=== PATIENT | male | born 1960 | race Caucasian/White ===

== ENCOUNTER 2018-11-09 21:22 | Inpatient (IN) | payer BC, OTHER ==
[~2018-11-09] VITALS: Ht 182.9 cm; Wt 87.2 kg
--- OUTSIDE RECORDS SUMMARY | 2018-11-09 21:26 | XMS REPORT | Clinical Summary ---
Author Author [facility] Organization [facility] Address Unknown Phone Unavailable Care Team Providers Care Director Of Community Life Name Role Phone Asked, No Pcp PCP Unavailable Allergies Comments Active Allergy Reactions Severity Noted Date Fatigue and depression Carvedilol 03/26/2016 Dye 03/25/2016 Iodine And Iodide Rash, High 03/26/2016 Containing Products Shortness Of Breath Medications End Date Status Medication Sig Dispensed Refills Start Date Active carvedilol (COREG) 25 MG Take 12.5 mg 0 tablet by mouth 2 (two) times a day with meals. Patient takes 6.25mg BID. Active losartan (COZAAR) 100 MG Take 25 mg by 0 tablet mouth daily. Active aspirin (ECOTRIN) 81 MG Take 81 mg by 0 enteric coated tablet mouth daily. Active omega-3 fatty Take by 0 acids-vitamin E (FISH mouth. OIL) 1,000 mg capsule Active fexofenadine (LYUDMILA) Take 180 mg 0 180 MG tablet by mouth. Active fluticasone (FLONASE) 50 1 spray into 0 mcg/actuation nasal spray each nostril. Active multivitamin (THERAGRAN) Take 1 tablet 0 tablet by mouth. Active levocetirizine (XYZAL) 5 Take 5 mg by 0 MG tablet mouth every evening. Active azelastine (ASTELIN) 137 1 spray into 0 mcg (0.1 %) nasal spray each nostril daily. Use in each nostril as directed Active calcium carbonate-vitamin Take 1 tablet 0 D3 500 mg-200 unit per by mouth 2 tablet (two) times a day with meals. Active cyanocobalamin, vitamin Place under 0 B-12, (VITAMIN B-12) the tongue. 1,000 mcg tablet, sublingual Active Problems Problem Noted Date Obesity 03/26/2016 Encounters Care Team Description Date Type Specialty Heri Avalos MD Morbid obesity due to excess calories (Primary Dx); Diabetes mellitus due to underlying condition with hyperosmolarity without coma, without long-term current use of insulin; Essential hypertension; Other hyperlipidemia; Obstructive sleep apnea; Systolic congestive heart failure, unspecified congestive heart failure chronicity 05/06/2018 Office Visit General Surgery Heri Avalos MD 04/21/2018 Orders Only General Surgery after 11/08/2017 Family History Medical History Relation Name Comments Cirrhosis Brother Hepatitis Brother Heart failure Father Colon cancer Mother Relation Name Status Comments Brother Father Mother Social History Date Tobacco Use Types Packs/Day Years Used Former Smoker Cigarettes 1 9 Smokeless Tobacco: Never Used Alcohol Use Drinks/Week oz/Week Comments Yes 1 Glasses of 0.6 occ. wine Sex Assigned at Date Recorded Not on file Industry Job Start Date Occupation Not on file Not on file Not on file Travel End Travel History Travel Start No recent travel history available. Last Filed Vital Signs Time Taken Vital Sign Reading 05/06/2018 11:18 AM CDT Blood Pressure 140/70 05/06/2018 11:18 AM CDT Pulse 61 05/06/2018 11:18 AM CDT Temperature 36.3 C (97.4 F) 05/06/2018 11:18 AM CDT Respiratory Rate 18 05/06/2018 11:18 AM CDT Oxygen Saturation 99% - Inhaled Oxygen - Concentration 05/06/2018 11:18 AM CDT Weight 85.5 kg (188 lb 8 oz) 05/06/2018 11:18 AM CDT Height 182.9 cm (6') 05/06/2018 11:18 AM CDT Body Mass Index 25.57 Plan of Treatment Health Maintenance Due Date Last Done Comments DIABETIC RETINAL EYE EXAM 1958 DIABETIC FOOT EXAM 1968 URINE MICROALBUMIN 1968 COLON CANCER SCREENING 2008 SHINGLES VACCINES (#1) 2008 INFLUENZA VACCINE Completed 05/05/2018, 05/16/2017, 05/05/2017, Additional history exists Procedures Comments Procedure Name Priority Date/Time Associated Diagnosis VITAMIN B1 LEVEL, WHOLE Routine 04/21/2018 BLOOD 8:27 AM CDT VITAMIN A LEVEL, PLASMA Routine 04/21/2018 OR SERUM 8:27 AM CDT ZINC LEVEL, SERUM Routine 04/21/2018 8:27 AM CDT COPPER LEVEL, SERUM Routine 04/21/2018 8:27 AM CDT PARATHYROID HORMONE Routine 04/21/2018 8:27 AM CDT FERRITIN LEVEL Routine 04/21/2018 8:27 AM CDT T4 Routine 04/21/2018 8:27 AM CDT VITAMIN D 25 HYDROXY Routine 04/21/2018 LEVEL 8:27 AM CDT THYROID STIMULATING Routine 04/21/2018 HORMONE 8:27 AM CDT HEMOGLOBIN A1C Routine 04/21/2018 8:27 AM CDT VITAMIN B12 AND FOLATE Routine 04/21/2018 8:27 AM CDT TOTAL IRON BINDING Routine 04/21/2018 CAPACITY 8:27 AM CDT LIPID PROFILE WITH Routine 04/21/2018 NON-HDL CHOLESTEROL 8:27 AM CDT COMPREHENSIVE METABOLIC Routine 04/21/2018 PANEL 8:27 AM CDT CBC WITH PLATELET AND Routine 04/21/2018 DIFFERENTIAL 8:27 AM CDT after 11/08/2017 Results * Lipid Panel (04/21/2018 8:27 AM CDT) Cholesterol 170 100 - 199 mg/dL [facility] Triglycerides 54 0 - 149 mg/dL [facility] HDL cholesterol 80 >39 mg/dL [facility] VLDL cholesterol leslie 11 5 - 40 mg/dL [facility] LDL cholesterol 79 0 - 99 mg/dL [facility] calculated Narrative Performed At Performed at:01 - [facility] [address] [place], [id number] [employer] Supervisor: Antonio Pretty MD, Phone:[phone] Performing Organization Address City/State/Zipcode Phone Number [facility] * Vitamin B12 and Folate (04/21/2018 8:27 AM CDT) Vitamin B12 1,225 232 - 1,245 pg/mL [facility] Folate 12.4 >3.0 ng/mL [facility] Comment: A serum folate concentration of less than 3.1 ng/mL is considered to represent clinical deficiency. Narrative Performed At Performed at:[address] [place], [place] [id number] [employer] Supervisor: Antonio Pretty MD, Phone:[phone] Performing Organization Address [facility] Phone Number [facility] * Total iron binding capacity (04/21/2018 8:27 AM CDT) Iron binding capacity 337 250 - 450 ug/dL [facility] Unsaturated iron binding 161 111 - 343 ug/dL [facility] capacity Iron level 176 (H) 38 - 169 ug/dL [facility] Iron saturation 52 15 - 55 % [facility] Narrative Performed At Performed at:[address] [place], [place] [id number] [employer] Supervisor: Antonio Pretty MD, Phone:[phone] Performing Organization Address [facility] Phone Number [facility] * Copper level, serum (04/21/2018 8:27 AM CDT) Copper 103Comment: 72 - 166 ug/dL [facility] Detection Limit=5 Narrative Performed At Performed at:[address] [place], [place] [id number] [employer] Supervisor: Ayden Valderrama MD, Phone:[phone] Performing Organization Address [facility] Phone Number [facility] * Vitamin B1 level, whole blood (04/21/2018 8:27 AM CDT) Vitamin B1, whole blood 92.1 66.5 - 200.0 nmol/L [facility] Comment: This test was developed and its performance characteristics determined by [facility]. It has not been cleared or approved by the Food and Drug Administration. Narrative Performed At Performed at:[address] [place], [place] [id number] [employer] Supervisor: Ayden Valderrama MD, Phone:[phone] Performing Organization Address [facility] Phone Number [facility] * Zinc level, serum (04/21/2018 8:27 AM CDT) Zinc 91Comment: 56 - 134 ug/dL [facility] Detection Limit=5 Narrative Performed At Performed at: [facility] [address] [place], [id number] [employer] Supervisor: Ayden Valderrama MD, Phone:[phone] Performing Organization Address [facility] Phone Number [facility] * Vitamin A level, plasma or serum (04/21/2018 8:27 AM CDT) Vitamin A (retinol) 50.6 33.1 - 100.0 ug/dL [facility] Comment: Reference intervals for vitamin A determined from National Health and Nutrition Examination Survey, 4169-6214. Individuals with vitamin A less than 20 ug/dL are considered vitamin A deficient and those with serum concentrations less than 10 ug/dL are considered severely deficient. This test was developed and its performance characteristics determined by [facility]. It has not been cleared or approved by the Food and Drug Administration. Narrative Performed At Performed at: [facility] [address] [place], [id number] [employer] Supervisor: Ayden Valderrama MD, Phone:[phone] Performing Organization Address [facility] Phone Number [facility] * Vitamin D 25 hydroxy level (04/21/2018 8:27 AM CDT) Vitamin D, 25-hydroxy 27.3 (L) 30.0 - 100.0 ng/mL [facility] Comment: Vitamin D deficiency has been defined by the [place] of Medicine and an Endocrine Society practice guideline as a level of serum 25-OH vitamin D less than 20 ng/mL (1,2). The Endocrine Society went on to further define vitamin D insufficiency as a level between 21 and 29 ng/mL (2). 1. IOM ([place] of Medicine). 2010. Dietary reference intakes for calcium and D. [place]: The National Academies Press. 2. Haseeb MF, Martín [place], Job HERRERA, et al. Evaluation, treatment, and prevention of vitamin D deficiency: an Endocrine Society clinical practice guideline. JCEM. 2010; 96(7):1911-30. Narrative Performed At Performed at: [facility] [address] [place], [id number] [employer] Supervisor: Antonio Pretty MD, Phone:[phone] Performing Organization Address [facility] Phone Number [facility] * CBC with platelet and differential (04/21/2018 8:27 AM CDT) WBC 6.6 3.4 - 10.8 x10E3/uL [facility] RBC 4.81 4.14 - 5.80 x10E6/uL [facility] HGB 15.3 13.0 - 17.7 g/dL [facility] HCT 44.3 37.5 - 51.0 % [facility] MCV 92 79 - 97 fL [facility] MCH 31.8 26.6 - 33.0 pg [facility] MCHC 34.5 31.5 - 35.7 g/dL [facility] RDW 15.6 (H) 12.3 - 15.4 % [facility] Platelet count 340 150 - 379 x10E3/uL [facility] Neutrophils 61 Not Estab. % [facility] Lymphocytes 29 Not Estab. % [facility] Monocytes 6 Not Estab. % [facility] Eosinophils 3 Not Estab. % [facility] Basophils 1 Not Estab. % [facility] Neutrophils, absolute 4.1 1.4 - 7.0 x10E3/uL [facility] Lymphocytes, absolute 1.9 0.7 - 3.1 x10E3/uL [facility] Monocytes, absolute 0.4 0.1 - 0.9 x10E3/uL [facility] Eosinophils, absolute 0.2 0.0 - 0.4 x10E3/uL [facility] Basophils, absolute 0.0 0.0 - 0.2 x10E3/uL [facility] Immature granulocytes 0 Not Estab. % [facility] Immature grans (abs) 0.0 0.0 - 0.1 x10E3/uL [facility] Narrative Performed At Performed at:01 - [facility] [address] [place], [place] [id number] [employer] Supervisor: Antonio Pretty MD, Phone:[phone] Performing Organization Address [facility] Phone Number [facility] * Thyroid stimulating hormone (04/21/2018 8:27 AM CDT) TSH 1.170 0.450 - 4.500 uIU/mL [facility] Narrative Performed At Performed at: - [id number] [employer] Supervisor: Antonio Pretty MD, Phone:[phone] Performing Organization Address City/[facility] Phone Number [facility] * T4 (04/21/2018 8:27 AM CDT) T4 6.4 4.5 - 12.0 ug/dL [facility] Narrative Performed At Performed at: [id number] [employer] Supervisor: Antonio Pretty MD, Phone:[phone] Performing Organization Address [facility] Phone Number [facility] * Parathyroid hormone (04/21/2018 8:27 AM CDT) PTH 31 15 - 65 pg/mL [facility] Narrative Performed At [facility]formed [facility]: [id number] [employer] Supervisor: Antonio Pretty MD, Phone:[phone] Performing Organization Address [facility] Phone Number [facility] * Hemoglobin A1c (04/21/2018 8:27 AM CDT) Hemoglobin A1C 5.2 4.8 - 5.6 % [facility] Comment: Pre-diabetes: 5.7 - 6.4 Diabetes: >6.4 Glycemic control for adults with diabetes: <7.0 Narrative Performed At Performed at: [id number] [employer] Supervisor: Antonio Pretty MD, Phone:[phone] Performing Organization Address [facility] Phone Number [facility] * Ferritin level (04/21/2018 8:27 AM CDT) Ferritin level 192 30 - 400 ng/mL [facility] Narrative Performed At Performed at: [id number] [employer] Supervisor: Antonio Pretty MD, Phone:[phone] Performing Organization Address [facility] Phone Number [facility] * Comprehensive metabolic panel (04/21/2018 8:27 AM CDT) Glucose 93 65 - 99 mg/dL [facility] BUN, whole blood 14 6 - 24 mg/dL [facility] Creatinine 0.81 0.76 - 1.27 mg/dL [facility] EGFR Non-Afr. Swedish 97 >59 mL/min/1.73 [facility] EGFR 112 >59 mL/min/1.73 [facility] BUN/creatinine ratio 17 9 - 20 [facility] Sodium 142 134 - 144 mmol/L [facility] Potassium 5.4 (H) 3.5 - 5.2 mmol/L [facility] Chloride 101 96 - 106 mmol/L [facility] CO2 27 20 - 29 mmol/L [facility] Calcium 10.2 8.7 - 10.2 mg/dL [facility] Protein 7.0 6.0 - 8.5 g/dL [facility] Albumin, S 4.7 3.5 - 5.5 g/dL [facility] Globulin, total 2.3 1.5 - 4.5 g/dL [facility] Albumin/globulin ratio 2.0 1.2 - 2.2 [facility] Total bilirubin 0.6 0.0 - 1.2 mg/dL [facility] Alkaline phosphatase 101 39 - 117 IU/L [facility] AST 18 0 - 40 IU/L [facility] ALT 19 0 - 44 IU/L [facility] Narrative Performed At Performed at:01 - [facility] [address] [place], [id number] [employer] Supervisor: Antonio Pretty MD, Phone:[phone] Performing Organization Address City/State/Zipcode Phone Number [facility] after 11/08/2017 Insurance Payer Benefit Subscriber ID Type Phone Address Plan / Group COMMERCIAL MISC MISC xxxxxxxxxxxx Commercial COMMERCIAL Advance Directives Patient has advance care planning documents on file. For more information, [place] contact: Karan Thurman [address] [place] [address]
--- OUTSIDE RECORDS SUMMARY | 2018-11-09 21:26 | XMS REPORT | Clinical Summary ---
Author Author JOYCE [facility] Address Unknown Phone Unavailable Care Team Providers Care Numerical Control Machine Tool Operator Name Role Phone Antonio Ramey MD PCP Unavailable Allergies Comments Active Allergy Reactions Severity Noted Date Fatigue and depression Carvedilol 08/18/2013 IVP dye Dye Rash Low 10/16/2015 Iodine And Iodide Shortness Of High 03/25/2013 Containing Products Breath, Rash Medications End Date Status Medication Sig Dispensed Refills Start Date Active pravastatin (PRAVACHOL) Take 20 mg by 0 40 MG tablet mouth daily . Active aspirin 81 MG EC tablet Take 81 mg by 0 mouth daily. Active losartan (COZAAR) 50 MG Take 2 30 tablet 6 tablet tablets (100 3 mg total) by mouth daily. Active spironolactone Take 25 mg by 0 (ALDACTONE) 25 MG tablet mouth daily. Active omeprazole (PRILOSEC) 20 Take 20 mg by 0 MG capsule mouth daily. Active metFORMIN (GLUCOPHAGE) Take 500 mg 0 500 MG tablet by mouth nightly. Active multivitamin per tablet Take 1 tablet 0 by mouth daily. Active omega-3 fatty acids Cap Take by mouth 0 daily. Active fluticasone (FLONASE) 50 1 spray by 0 mcg/actuation nasal spray Nasal route daily. Active fexofenadine (LYUDMILA) Take 180 mg 0 180 MG tablet by mouth daily. Active carvedilol (COREG) 25 MG Take 25 mg by 0 tablet mouth 2 (two) times daily with breakfast and dinner. Active Problems Problem Noted Date Cardiomyopathy, nonischemic 08/19/2013 Status post implantation of automatic cardioverter/defibrillator (AICD) 08/19/2013 Single chamber BSX 08/19/2013 S/P implantation of automatic cardioverter/defibrillator (AICD) 08/19/2013 S/P LHC showing plaque in coronaries, EF 25-30% w/RWMA,LV 140/15-28mmHg 03/25/2013 post Tridil 14-20mmHg 03/25/2013 Abnormal nuclear stress test (moderate anteroapical, apical and septal 03/19/2013 partially reversible defect) 6-18-13 Left bundle branch block 03/19/2013 Cardiomyopathy 03/19/2013 HTN (hypertension), benign 03/19/2013 Diabetes mellitus T2 03/19/2013 Social History Date Tobacco Use Types Packs/Day Years Used Former Smoker Smokeless Tobacco: Never Used Alcohol Use Drinks/Week oz/Week Comments Yes rarely Sex Assigned at Date Recorded Not on file Industry Job Start Date Occupation Not on file Not on file Not on file Travel End Travel History Travel Start No recent travel history available. Last Filed Vital Signs Not on file Plan of Treatment Not on file Results Not on fileafter 11/08/2017 Insurance Payer Benefit Subscriber ID Type Phone Address [facility]/POS CARE POS [facility] CHO[facility] xxxxxxxxx CARE HEALTHCARE Advance Directives For more information, please contact: [address] [address] Date Inactivated Comments Code Status Date Activated 08/20/2013 2:19 PM All possible means of support, including: cardiac massage, mechanical ventilation, and defibrillation will be used to support life. Code ONE 08/19/2013 11:39 AM 08/19/2013 11:39 AM All possible means of support including;cardiac massage, mechanical ventilation, and defibrillation will be used to support life. Code ONE 08/19/2013 7:55 AM 03/26/2013 12:14 AM All possible means of support including;cardiac massage, mechanical ventilation, and defibrillation will be used to support life. Code ONE 03/25/2013 8:20 AM
[2018-11-09] MEDS ORDERED: SODIUM CHLORIDE 0.9% 1000ML 1,000 ML IV STA (21:34)
[2018-11-09] MEDS ORDERED: ONDANSETRON HCL INJ 2MG/ML 2ML 2 MG/ML VIAL IV ONE (21:45)
[2018-11-09] MEDS ORDERED: MORPHINE SULFATE INJ 4 MG/ML INJ 1ML IV ONE (21:45)
[2018-11-09 21:57] LABS: BASOPHILS % 0.4 % (0.0-1.0); EOSINOPHILS # (AUTO) 0.2 (0.0-0.4); EOSINOPHILS % 1.7 % (0.0-6.0); HEMATOCRIT 42.7 % (38.2-49.6); HEMOGLOBIN 14.9 g/dL (14.0-18.0); LYMPHOCYTES # (AUTO) 2.2 (1.0-3.2); MEAN CORPUSCULAR HEMOGLOBIN 31.4 pg (28-32); MEAN CORPUSCULAR HGB CONC 34.9 g/dL (31-35); MEAN CORPUSCULAR VOLUME 89.9 fL (81-99); MONOCYTES # (AUTO) 0.7 (0.2-0.8); MONOCYTES % 7.7 % (4.4-11.3); NEUTROPHILS # (AUTO) 6.5 (2.1-6.9); NEUTROPHILS % 66.7 % (38.7-80.0); PLATELET COUNT 408 x10e3/uL (140-360); RED BLOOD COUNT 4.75 x10e6/uL (4.3-5.7); RED CELL DISTRIBUTION WIDTH 14.5 % (11.7-14.4)
[2018-11-09 22:12] LABS: ALANINE AMINOTRANSFERASE 19 IU/L (0-55); ALBUMIN 4.3 g/dL (3.5-5.0); ALBUMIN/GLOBULIN RATIO 1.6 (0.8-2.0); ALKALINE PHOSPHATASE 97 IU/L (40-150); AMYLASE 24 U/L (25-125); ANION GAP 13.4 mmol/L (8-16); BLOOD UREA NITROGEN 12 mg/dL (7-26); BUN/CREATININE RATIO 14 (6-25); CALCIUM 9.9 mg/dL (8.4-10.2); CARBON DIOXIDE 28 mmol/L (22-29); CHLORIDE 100 mmol/L (98-107); CREATININE, SERUM 0.83 mg/dL (0.72-1.25); EST GLOMERULAR FILTRATION RATE > 60 ML/MIN (60-); GLUCOSE 107 mg/dL (74-118); LIPASE 17 U/L (8-78); POTASSIUM 4.4 mmol/L (3.5-5.1); SODIUM 137 mmol/L (136-145)
[2018-11-09 23:59] LABS: BILIRUBIN,URINE NEGATIVE (NEGATIVE); CLARITY,URINE CLEAR (CLEAR); COLOR,URINE YELLOW (YELLOW); KETONES,URINE NEGATIVE (NEGATIVE); LEUKOCYTE ESTERASE ,URINE NEGATIVE (NEGATIVE); NITRITE,URINE NEGATIVE (NEGATIVE); PROTEIN,URINE DIPSTICK NEGATIVE (NEGATIVE); URINE UROBILINOGEN 0.2 mg/dL (0.2 - 1)
--- NOTE | 2018-11-10 00:22 | Diagnostic Imaging Report ---
CT Abdomen and Pelvis without contrast INDICATION: Umbilical pain (stabbing, cramping) TECHNIQUE: Thin collimation axial images obtained from the diaphragm to the level of the pubic symphysis without nonionic intravenous contrast. Oral contrast was administered. Dose reduction techniques used: Automated exposure control, adjustment of the mAs and/or kVp according to patient size, standardized low-dose protocol, and/or iterative reconstruction technique. RADIATION DOSE: Total DLP: 481.89 mGy*cm Estimated effective dose: (DLP x 0.015 x size factor) mSv CTDIvol has been reviewed. It is below the limits set by the Radiation Protocol Committee (RPC). COMPARISON: None. ABDOMEN FINDINGS: Lung Bases: Clear. AICD lead terminates in the right ventricle. The heart is not enlarged. No pericardial effusion. The distal esophagus is normal. Liver: Normal in attenuation without mass. Gallbladder: Present and appears normal. No ductal dilatation. Pancreas: Normal attenuation without mass. Spleen: 14.6 cm in AP length. Attenuation is normal. No mass. Adrenal Glands: No evidence for mass. Kidneys: Right: No renal calculus. No cortical mass or hydronephrosis Left: No renal calculus. No cortical mass or hydronephrosis Lymph Nodes: No enlarged abdominal or retroperitoneal lymph nodes. Aorta: Normal in diameter with a few atherosclerotic calcifications. PELVIS FINDINGS: Bowel: Stomach/small bowel: Postoperative changes suggestive of Giana-en-Y bypass. The excluded stomach is distended with a small amount of fluid. There is enteric contrast in the right limb of small bowel which is located anterior to the transverse colon. There is a dilated centrally located small bowel loop in the midabdomen measuring 3.6 cm in diameter. There is whorling of the small bowel mesentery immediately adjacent. No edema within the small bowel mesentery. Remainder of the small bowel loops are collapsed. Large Bowel: Moderate burden of stool throughout. No mural thickening or pericolonic inflammation. The cecum is low-lying within the pelvis. Appendix: Not visualized and may be absent or collapsed.. Bladder: Normal. Ureters: No ureteral dilatation or calculus.. Peritoneum/retroperitoneum: No free fluid or fluid collection. No free air. Bones: Mild degenerative changes of the spine. No focal osseous lesions. Soft tissues: Unremarkable.. IMPRESSION: 1. Status post Giana-en-Y bypass with dilated unopacified small bowel loop and whorling of the small bowel mesentery is suggestive of obstruction secondary to volvulus. Internal hernia with obstruction is also included in the differential. 2. Other findings as described above. Findings of bowel obstruction discussed with Dr. Snyder at 1218 hours. Signed by: Dr. Olivier Chen MD on 11/10/2018 12:19 AM
[2018-11-10 00:25] LABS: WBC,URINE (MAN) 0-5 /HPF (0-5)
[2018-11-10 00:26] LABS: BACTERIA,URINE RARE /HPF; EPITHELIAL CELLS,URINE RARE /LPF; RBC,URINE 0-5 /HPF (0-5)
[2018-11-10] MEDS ORDERED: ONDANSETRON HCL INJ 2MG/ML 2ML 2 MG/ML VIAL IV PRN (01:00)
[2018-11-10] MEDS ORDERED: MORPHINE SULFATE INJ 4 MG/ML INJ 1ML IV PRN ×2 (01:00→13:00)
[2018-11-10] MEDS ORDERED: SODIUM CHLORIDE 0.9% 1000ML 1,000 ML IV ONE (01:00)
[2018-11-10] MEDS ORDERED: METRONIDAZOLE 500MG/NS 100ML IV SCH (01:00)
[2018-11-10] MEDS ORDERED: PIPER-TAZ 3.375 GM / NS 50ML IV SCH ×4 (01:00→14:00)
--- OUTSIDE RECORDS SUMMARY | 2018-11-10 01:36 | XMS REPORT | Clinical Summary ---
Author Author JOYCE [facility] Address Unknown Phone Unavailable Care Team Providers Care Account Associate Name Role Phone Antonio Ramey MD PCP [...] Not on file Results Not on fileafter 11/09/2017 Insurance Payer Benefit Subscriber ID Type Phone Address Plan / Group [facility] H[facility]/POS CARE POS [facility] xxxxxxxxx CARE HEALTHCARE Advance Directives For more information, please contact: [address] [address] Date Inactivated Comments Code Status [...]
--- OUTSIDE RECORDS SUMMARY | 2018-11-10 01:36 | XMS REPORT ---
Author Author [facility] Address Unknown Phone Unavailable Care Team Providers Care Tile Machine Operator Name Role Phone Cristhian DEL ROSARIO Unavailable Unavailable Problems This patient has no known problems. Allergies, Adverse Reactions, Alerts This patient has no known allergies or adverse reactions. Medications This patient has no known medications. Results Test Description Test Time Test Comments Text Results Atomic Results Result Comments CT ABDOMEN/PELVIS WO 2018-11-10 00:07:00 [place] [address] Patient Name: LUIS MANUEL NIELSON MR #: [id number] : 1960 Age/Sex: 58/M Req #: [id number] Adm Physician: Ordered by: STONEY CASTRO MASTERCAM PROGRAMMER Report #: [id number] Location: ER Room/Bed: Procedure: [id number] CT/CT ABDOMEN/PELVIS WO Exam Date: 11/09/18 Exam Time: 2345 REPORT STATUS: Signed CT Abdomen and Pelvis without contrast INDICATION: Umbilical pain (stabbing, cramping) TECHNIQUE: Thin collimation axial images obtained from the diaphragm to the level of the pubic symphysis without nonionic intravenous contrast. Oral contrast was administered. Dose reduction techniques used: Automated exposure control, adjustment of the mAs and/or kVp according to patient size, standardized low-dose protocol, and/or iterative reconstruction technique. RADIATION DOSE: Total DLP: 481.89 mGy*cm Estimated effective dose: (DLP x 0.015 x size factor) mSv CTDIvol has been reviewed. It is below the limits set by the Radiation Protocol Committee (RPC). COMPARISON: None. ABDOMEN FINDINGS: Lung Bases: Clear. AICD lead terminates in the right ventricle. The heart is not enlarged. No pericardial effusion. The distal esophagus is normal. Liver: Normal in attenuation without mass. Gallbladder: Present and appears normal. No ductal dilatation. Pancreas: Normal attenuation without mass. Spleen: 14.6 cm in AP length. Attenuation is normal. No mass. Adrenal Glands: No evidence for mass. Kidneys: Right: No renal calculus. No cortical mass or hydronephrosis Left: No renal calculus. No cortical mass or hydronephrosis Lymph Nodes: No enlarged abdominal or retroperitoneal lymph nodes. Aorta: Normal in diameter with a few atherosclerotic calcifi cations. PELVIS FINDINGS: Bowel: Stomach/small bowel: Postoperative changes suggestive of Giana-en-Y bypass. The excluded stomach is distended with a small amount of fluid. There is enteric contrast in the right limb of small bowel which is located anterior to the transverse colon. There is a dilated centrally located small bowel loop in the midabdomen measuring 3.6 cm in diameter. There is whorling of the small bowel mesentery immediately adjacent. No edema within the small bowel mesentery. Remainder of the small bowel loops are collapsed. Large Bowel: Moderate burden of stool throughout. No mural thickening or pericolonic inflammation. The cecum is low- lying within the pelvis. Appendix: Not visualized and may be absent or collapsed.. Bladder: Normal. Ureters: No ureteral dilatation or calculus.. Peritoneum/retroperitoneum: No free fluid or fluid collection. No free air. Bones: Mild degenerative changes of the spine. No focal osseous lesions. Soft tissues: Unremarkable.. IMPRESSION: 1. Status post Giana-en-Y bypass with dilated unopacified small bowel loop and whorling of the small bowel mesentery is suggestive of obstruction secondary to volvulus. Internal hernia with obstruction is also included in the differential. 2. Other findings as described above. Findings of bowel obstruction discussed with Dr. Del Rosario at 1218 hours. Signed by: Dr. Quinten Chen MD on 11/10/2018 12:19 AM Dictated By: QUINTEN CHEN MD Transcribed By: BROOKE on 11/10/1818 COPY TO: STONEY CASTRO NP
--- OUTSIDE RECORDS SUMMARY | 2018-11-10 01:36 | XMS REPORT | Clinical Summary ---
Author Author [facility] Address Unknown Phone Unavailable Care Team Providers Care Insurance Account Executive Name Role Phone Asked, No Pcp PCP [...] MD 04/21/2018 Orders Only General Surgery after 11/09/2017 Family History Medical History Relation Name Comments [...] Routine 04/21/2018 DIFFERENTIAL 8:27 AM CDT after 11/09/2017 Results * Lipid Panel (04/21/2018 8:27 AM CDT) Cholesterol 170 100 - 199 mg/dL [facility] Triglycerides 54 0 - 149 mg/dL [facility] HDL cholesterol 80 >39 mg/dL [facility] VLDL cholesterol leslie 11 5 - 40 mg/dL [facility] LDL cholesterol 79 0 - 99 mg/dL [facility] calculated Narrative Performed At Performed at:01 - [facility] [address] [place], [id number] Engine Pilot: Antonio Pretty MD, Phone:[phone] Performing Organization Address City/State/Zipcode Phone Number [facility] * Vitamin B12 and Folate (04/21/2018 8:27 AM CDT) Vitamin B12 1,225 232 - 1,245 pg/mL [facility] Folate 12.4 >3.0 ng/mL [facility] Comment: A serum folate concentration of less than 3.1 ng/mL is considered to represent clinical deficiency. Narrative Performed At Performed at:[address] [place], [place] [id number] Engine Pilot: Antonio Pretty MD, Phone:[phone] Performing Organization Address [facility] Phone Number [facility] * Total iron binding capacity (04/21/2018 8:27 AM CDT) Iron binding capacity 337 250 - 450 ug/dL [facility] Unsaturated iron binding 161 111 - 343 ug/dL [facility] capacity Iron level 176 (H) 38 - 169 ug/dL [facility] Iron saturation 52 15 - 55 % [facility] Narrative Performed At Performed at:[address] [place], [place] [id number] Engine Pilot: Antonio Pretty MD, Phone:[phone] Performing Organization Address [facility] Phone Number [facility] * Copper level, serum (04/21/2018 8:27 AM CDT) Copper 103Comment: 72 - 166 ug/dL [facility] Detection Limit=5 Narrative Performed At Performed at:[address] [place], [place] [id number] Engine Pilot: Ayden Valderrama MD, Phone:[phone] Performing Organization Address [facility] Phone Number [facility] * Vitamin B1 level, whole blood (04/21/2018 8:27 AM CDT) Vitamin B1, whole blood 92.1 66.5 - 200.0 nmol/L [facility] Comment: This test was developed and its performance characteristics determined by [facility]. It has not been cleared or approved by the Food and Drug Administration. Narrative Performed At Performed at:[address] [place], [place] [id number] Engine Pilot: Ayden Valderrama MD, Phone:[phone] Performing Organization Address [facility] Phone Number [facility] * Zinc level, serum (04/21/2018 8:27 AM CDT) Zinc 91Comment: 56 - 134 ug/dL [facility] Detection Limit=5 Narrative Performed At Performed at: [facility] [address] [place], [id number] Engine Pilot: Ayden Valderrama MD, Phone:[phone] Performing Organization Address [facility] Phone Number [facility] * Vitamin A level, plasma or serum (04/21/2018 8:27 AM CDT) Vitamin A (retinol) 50.6 33.1 - 100.0 ug/dL [facility] Comment: Reference intervals for vitamin A determined from National Health and Nutrition Examination Survey, 3031-9582. Individuals with vitamin A less than 20 ug/dL are considered vitamin A deficient and those with serum concentrations less than 10 ug/dL are considered severely deficient. This test was developed and its performance characteristics determined by [facility]. It has not been cleared or approved by the Food and Drug Administration. Narrative Performed At Performed at: [facility] [address] [place], [id number] Engine Pilot: Ayden Valderrama MD, Phone:[phone] Performing Organization Address [facility] Phone Number [facility] * Vitamin D 25 hydroxy level (04/21/2018 8:27 AM CDT) Vitamin D, 25-hydroxy 27.3 (L) 30.0 - 100.0 ng/mL [facility] Comment: Vitamin D deficiency has been defined by the [place] of Medicine and an Endocrine Society practice guideline as a level of serum 25-OH vitamin D less than 20 ng/mL (1,2). The Endocrine Society went on to further define vitamin D insufficiency as a level between 21 and 29 ng/mL (2). 1. IOM ([place] of Medicine). 2010. Dietary reference intakes for calcium and D. [place]: The National Academies Press. 2. Haseeb MF, Martín [place], Job HERRERA, et al. Evaluation, treatment, and prevention of vitamin D deficiency: an Endocrine Society clinical practice guideline. JCEM. 2010; 96(7):1911-30. Narrative Performed At Performed at: - [facility] [address], [id number] Engine Pilot: Antonio Pretty MD, Phone:[phone] Performing Organization Address [facility] Phone Number [facility] * CBC with platelet [...] Narrative Performed At Performed at:01 - [facility] [address] [place], [place] [id number] Engine Pilot: Antonio Pretty MD, Phone:[phone] Performing Organization Address [facility] Phone Number [facility] * Thyroid stimulating hormone (04/21/2018 8:27 AM CDT) TSH 1.170 0.450 - 4.500 uIU/mL [facility] Narrative Performed At Performed at: - [id number] Engine Pilot: Antonio Pretty MD, Phone:[phone] Performing Organization Address City/[facility] Phone Number [facility] * T4 (04/21/2018 8:27 AM CDT) T4 6.4 4.5 - 12.0 ug/dL [facility] Narrative Performed At Performed at: [id number] Engine Pilot: Antonio Pretty MD, Phone:[phone] Performing Organization Address [facility] Phone Number [facility] * Parathyroid hormone (04/21/2018 8:27 AM CDT) PTH 31 15 - 65 pg/mL [facility] Narrative Performed At [facility]formed at: [id number] Engine Pilot: Antonio Pretty MD, Phone:[phone] Performing Organization Address [facility] Phone Number [facility] * Hemoglobin A1c (04/21/2018 8:27 AM CDT) Hemoglobin A1C 5.2 4.8 - 5.6 % [facility] Comment: Pre-diabetes: 5.7 - 6.4 Diabetes: >6.4 Glycemic control for adults with diabetes: <7.0 Narrative Performed At Performed at: [id number] Engine Pilot: Antonio Pretty MD, Phone:[phone] Performing Organization Address [facility] Phone Number [facility] * Ferritin level (04/21/2018 8:27 AM CDT) Ferritin level 192 30 - 400 ng/mL [facility] Narrative Performed At Performed at: [id number] Engine Pilot: Antonio Pretty MD, Phone:[phone] Performing Organization Address City[facility] Phone Number [facility] * Comprehensive metabolic panel (04/21/2018 8:27 AM CDT) Glucose 93 65 - 99 mg/dL [facility] BUN, whole blood 14 6 - 24 mg/dL [facility] Creatinine 0.81 0.76 - 1.27 mg/dL [facility] EGFR Non-Afr. Filipino 97 >59 mL/min/1.73 [facility] EGFR 112 >59 [...] Narrative Performed At Performed at:01 - [facility] [address], [id number] Engine Pilot: Antonio Pretty MD, Phone:[phone] Performing Organization Address City/State/Zipcode Phone Number [facility] after 11/09/2017 Insurance Payer Benefit Subscriber ID Type Phone Address Plan / Group COMMERCIAL MISC MISC xxxxxxxxxxxx Commercial COMMERCIAL Advance Directives Patient has advance care planning documents on file. For more information, [place] contact: Karan Thurman [address] [place] [address]
--- NOTE | 2018-11-10 01:49 | Diagnostic Imaging Report ---
EXAMINATION: CHEST SINGLE (PORTABLE) COMPARISON: None INDICATION: CHF ^H/O CHF ^[id number] ^[id number] DISCUSSION: Frontal view of the chest obtained at 0112 hours. HEART AND MEDIASTINUM: The heart is top normal in size and contains an AICD lead in the right ventricle. LINES: None. LUNGS: The lungs are well inflated and clear. No pneumonia or pulmonary edema. PLEURA: No pleural effusion or pneumothorax. BONES AND SOFT TISSUES: Mild degenerative changes of the right shoulder. No focal osseous lesions. Soft tissues are unremarkable. IMPRESSION: No acute cardiopulmonary disease. Signed by: Dr. Olivier Chen MD on 11/10/2018 1:46 AM
--- NOTE | 2018-11-10 04:00 | NUR ---
Patient received via stretcher from ER. at bedside. Admission history obtained and Initial physical assessment performed. Patient is AAO x 3. Patient had no complaints of pain. No signs of respiratory distress. Patient oriented to room, call light and plan of care. Fall precautions in place. Patient instructed to call for assistance when needed. Call light within reach.
--- NOTE | 2018-11-10 04:03 | NUR ---
SPOKE TO KIRK-MANAGER BUSINESS INFORMATION- MANAGER UTILIZATION MANAGEMENT WILL DRAW PT/PTT/ TYPE AND SCREEN/CARDIAC MARKERS
[2018-11-10] MEDS: METRONIDAZOLE 500MG/NS 100ML IV SCH ×2 (04:20→10:00)
[2018-11-10 05:00] VITALS: BP 153/67
--- NOTE | 2018-11-10 05:07 | NUR ---
Patient informed of recommended surgical procedure---Exploratory Laparoscopy. Instructions given regarding "NPO" status. Patient verbalized understanding and voluntarily signed "Disclosure and Consent" form.
[2018-11-10 06:17] VITALS: BP 153/67
[2018-11-10 06:23] LABS: INR 0.95; PROTHROMBIN TIME 13.6 seconds (11.9-14.5)
[2018-11-10 06:24] LABS: PARTIAL THROMBOPLASTIN TIME 34.4 seconds (23.8-35.5)
[2018-11-10 06:47] LABS: CREATINE KINASE MB 0.3 ng/mL (0-5.0)
[2018-11-10 07:30] VITALS: BP 144/67
[2018-11-10] MEDS ORDERED: LOSARTAN POTASS25 MG PO (08:09)
[2018-11-10] MEDS ORDERED: METOPROLOL SUCC50 MG PO (08:09)
[2018-11-10 08:23] VITALS: BP 144/67
[2018-11-10] MEDS ORDERED: ENALAPRILAT IV INJ 1.25 MG/ML VIAL IV PRN (08:45)
[2018-11-10] MEDS ORDERED: HEPARIN SOD/SOD CHLORIDE 1,000 ML ONE (10:09)
[2018-11-10] MEDS ORDERED: BUPIVACAINE 0.25%/EPI 30ML SDV INJ ONE (10:37)
[2018-11-10] MEDS: METOPROLOL TARTRATE INJ 1 MG/ML VIAL IV SCH ×3 (12:00→23:32)
[2018-11-10] MEDS: FENTANYL CITRATE/PF 100MCG/2 ML INJ ONE ×2 (13:15→14:40)
[2018-11-10] MEDS: PIPER-TAZ 3.375 GM 50 ML IV SCH ×2 (14:33→23:00)
[2018-11-10] MEDS ORDERED: NEOSTIGMINE 5 MG/5ML SYR ONE (15:11)
[2018-11-10] MEDS ORDERED: LIDOCAINE HCL 2% LOCAL INJ 5 ML SDV VIAL INJ ONE (15:11)
[2018-11-10] MEDS ORDERED: KETOROLAC TROMETHAMINE 30 MG/ML VIAL ONE (15:11)
[2018-11-10] MEDS ORDERED: ATROPINE SULFATE 1 MG/ML VIAL ONE (15:11)
[2018-11-10] MEDS ORDERED: DEXAMETHASONE SOD PHOS INJ 4 MG/ML VIAL ONE (15:11)
[2018-11-10] MEDS ORDERED: SUCCINYLCHOLINE 200 MG/10 ML SYR ONE (15:11)
[2018-11-10] MEDS ORDERED: ONDANSETRON HCL INJ 2MG/ML 2ML 2 MG/ML VIAL ONE (15:11)
[2018-11-10] MEDS ORDERED: SEVOFLURANE INHAL SOLN 250 ML PEN BTL ONE (15:11)
[2018-11-10] MEDS ORDERED: ROCURONIUM BROMIDE 10 MG/ML 5ML VIAL ONE (15:11)
[2018-11-10] MEDS ORDERED: PROPOFOL IV EMULSION 10 MG/ML 20 ML VIAL ONE (15:11)
--- NOTE | 2018-11-10 15:15 | NUR ---
Visit made by the Spiritual Care Department Pastoral Visitor, Daxa Rockwell. Pt sleeping soundly and no family present. Pastoral Visitor left a card describing availability of main line assembler and instructions on how to contact a main line assembler. DOROTHY LEDESMA Deputy Chief Executive Spiritual Care Department O: [phone] Pager: [phone] ([phone] number calling from)
--- NOTE | 2018-11-10 15:35 | Consultation ---
DATE OF CONSULTATION: 11/10/2018 REASON FOR CONSULTATION: Cardiac clearance. CHIEF COMPLAINT: Abdominal pain. HISTORY OF PRESENT ILLNESS: This is a 58-year-old male with history of nonischemic cardiomyopathy status post left heart catheterization apparently in 2012, status post ICD placement in 2012, hypertension, status post gastric bypass surgery in 2016. The patient presents to [facility] ER with complaint of abdominal pain that started yesterday morning around 6:30 or so. He reports pain has been sharp, comes and goes, and also a constant dull pain in his epigastric region. CT of the abdomen was done, which findings are concerning for small bowel obstruction and volvulus. The patient reports that he has been following with Dr. Albarran he reports that cardiac [place], he has been stable, he is active, he is able to do his daily activities without any limitations. Denies any chest pains, any shortness of breath, any orthopnea, any PND, or lower extremity edema. PAST MEDICAL HISTORY: Left heart catheterization in about 2012 and was told that coronary arteries were clean, nonischemic cardiomyopathy, status post ICD placement Vapotherm, and hypertension. PAST SURGICAL HISTORY: ICD placement, appendectomy, Giana-en-Y gastric bypass in 2016, and tympanoplasty. SOCIAL HISTORY: He is . He is a professor at [employer]. Denies any alcohol use or tobacco use. FAMILY HISTORY: Mother at the age of 78, apparently with complications of colon caner. Father at the age of 69, apparently with history of heart disease. HOME MEDICATIONS: Losartan 25 mg once a day and metoprolol 50 mg twice a day. ALLERGIES: APPARENTLY TO CARVEDILOL AND IODINE. REVIEW OF SYSTEMS: GENERAL: Denies any weight changes, any fatigue, weakness, fevers, chills, or night sweats. SKIN: No rashes, bruises, or sores. HEENT: Denies any nausea, vomiting, vision change, hearing loss, tinnitus, earaches, epistaxis, hoarseness, sore throat, or swollen neck. CARDIAC: Denies any chest pains, any shortness of breath, any orthopnea, any PND, or any lower extremity edema. Positive for dyspnea on exertion. RESPIRATORY: Denies any shortness of breath, any wheezing, coughing, or hemoptysis. GI: Denies any nausea or vomiting. Positive for constipation. Positive for abdominal pain. URINARY: Denies any frequency, urgency, any dysuria, hematuria, or nocturia. VASCULAR: Denies any lower extremity edema or claudication. MUSCULOSKELETAL: Denies any muscle weakness. Positive for joint pains. NEUROLOGIC: Denies any numbness, tingling, any weakness, paralysis, fainting, blackouts. HEMATOLOGIC: Denies any anemia or easy bruising. ENDOCRINE: Denies any heat or cold intolerance, any polyuria, polydipsia, or polyphagia. PHYSICAL EXAMINATION: GENERAL: Appears stated age, reliable informant, in no acute distress. VITAL SIGNS: Temperature 97.0, pulse 66, blood pressure 153/67, pulse ox 100% on room air. SKIN: No rashes or bruises noted. HEENT: Normocephalic. Pupils equal and reactive. Extraocular movements are intact. Oral mucosa pink. NECK: Trachea midline. No JVD. No thyromegaly. HEART: Regular rate and rhythm. He does have ICD scar in the left chest. LUNGS: Bilateral breath sounds are clear to auscultation. ABDOMEN: Soft, however, tender to palpation. Hypoactive bowel sounds. No organomegaly noted. MUSCULOSKELETAL: Good muscle strength throughout. Slight lower extremity edema. VASCULAR: +2 bilateral radial pulses, +2 DP/PT pulses. NEUROLOGIC: Cranial nerves II through XII seem intact. LABORATORY DATA: White count 9.6, hemoglobin 14, hematocrit of 42, and platelets 408. Sodium 137, potassium 4.4, chloride 100, bicarb 28, BUN 12, and creatinine 0.8. Troponin 0.009. BNP 62. Lipase 14 and amylase 24. IMAGING DATA: EKG is showing normal sinus rhythm with a left bundle-branch block. CT abdomen showing dilated small bowel loop suggesting small bowel obstruction and volvulus. Chest x-ray reveals no acute cardiopulmonary disease. ASSESSMENT: 1. Small bowel obstruction with volvulus of bowel. 2. Status post Giana-en-Y gastric bypass. 3. Nonischemic cardiomyopathy with a history of left heart catheterization in 2012, reported as normal coronaries. 4. Status post ICD placement, Vapotherm. 5. Hypertension. PLAN: 1. This patient presents with abdominal pain that started yesterday morning. CT suggests a small bowel obstruction and volvulus. Cardiac clearance was requested. We will clear the patient for surgery if indicated by General Surgery; however, risks are not zero. 2. We will go ahead and get an echo to evaluate heart function and structure. 3. We will go ahead and continue the patient's cardiac meds as indicated. 4. We will continue to follow the patient and adjust cardiac therapy as clinic course dictates. Thank you very much for this consult. Dictated by Pradeep Valles NP SEEN AND EVALUATED DISCUSSED WITH MD'S AGREE WITH NOTE Celestino Rdz MD DC/EMMA /[id number] VICKI
[2018-11-10 15:44] VITALS: BP 121/58
--- NOTE | 2018-11-10 16:01 | Consultation ---
DATE OF CONSULTATION: 11/10/2018 CHIEF COMPLAINT: Abdominal pain. HISTORY OF PRESENT ILLNESS: The patient is a 58-year-old male, who complains of epigastric abdominal pain, radiating to the back, with nausea, no vomiting. No fevers or chills, no diarrhea. The patient has no previous similar episode. The patient has history of gastric bypass and loss of weight. PAST MEDICAL HISTORY: Significant for hypertension and arrhythmia. PAST SURGICAL HISTORY: Positive for defibrillator placement and laparoscopic gastric bypass surgery for weight loss. ALLERGIES: HE IS ALLERGIC TO IODINE AND CARVEDILOL. SOCIAL HISTORY: No history of smoking or alcohol abuse. REVIEW OF SYSTEMS: No chest pain or shortness of breath. PHYSICAL EXAMINATION: VITAL SIGNS: Stable. Afebrile. GENERAL: He is awake, alert, in moderate discomfort. HEENT: Sclerae anicteric. NECK: Supple. LUNGS: Clear. HEART: Regular rate and rhythm. ABDOMEN: Soft with guarding tenderness in the epigastric area. No rebound. EXTREMITIES: No cyanosis or edema. LABORATORY DATA: White cell count is 9.6, hemoglobin of 15. Creatinine of 0.8. Abdominal CT show dilated small bowel loops with whirling of the mesentery suggestive of volvulus. 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 PLAN: Laparoscopy possible open, repair of internal hernia. Attenuated risks discussed. Pradeep Srivastava MD DNAnali/[facility] /[id number]
[2018-11-10] MEDS: ACETAMINOPHEN/CODEINE 300MG - 30MG TAB PO PRN (16:48)
--- NOTE | 2018-11-10 19:06 | Operative Report ---
DATE OF PROCEDURE: 11/10/2018 SURGEON: Pradeep Srivastava MD PREOPERATIVE DIAGNOSIS: Bowel obstruction secondary to mesenteric volvulus. POSTOPERATIVE DIAGNOSIS: Bowel obstruction secondary to adhesive band. OPERATIVE PROCEDURE: Diagnostic laparoscopy and open lysis of adhesive band. CONCRETE POURER: None. ANESTHESIA: General, Dr. Antoine. INDICATIONS FOR SURGERY: This patient is a 58-year-old male with history of abdominal pain of 1 day with nausea and vomiting. CT scan of the abdomen showed evidence of small bowel obstruction with whirling of the small bowel mesentery suggestive of volvulus. The patient had consented for diagnostic laparoscopy, possible open, repair of mesenteric volvulus. PROCEDURE FINDINGS: Adhesive band obstructing the proximal jejunum. DESCRIPTION OF PROCEDURE: The patient was brought to the OR, intubated. Abdomen prepped with alcohol and draped in sterile fashion. A supraumbilical incision was made and a 5 mm port was inserted. Insufflation then began. Under direct vision, another port was placed in the epigastric area. Laparoscopic examination revealed evidence of small bowel obstruction with the small bowel dilated as it entered the Giana-en-Y limb suggestive of Cunningham hernia. At this point, open conversion carried out via an upper midline incision through linea alba entering the peritoneal cavity. The Giana limb was identified and was noted to be long and the jejunojejunostomy anastomosis was also identified with mildly dilated afferent loop without obstruction. Distal to the jejunojejunostomy anastomosis, the loop of bowel was noted to be distended leading to an area of blockage from adhesive band between the mesentry of the distal bowel to the proximal intestine, and this adhesive band was lysed using cautery. Hemostasis was achieved. The bowel was followed distally to the ileocecal valve without any other twisting. No evidence of internal hernia. At this point, operative field was irrigated. Hemostasis was achieved. Fascial approximation was carried out with #1 PDS. Skin was closed with francisco javier. The patient was extubated and transported to recovery room. Estimated blood loss was 10 mL. Pradeep Srivastava MD DNL/[facility] /[id number]
[2018-11-10] MEDS ORDERED: FENTANYL CITRATE/PF 100MCG/2 ML INJ ONE (19:24)
[2018-11-10] MEDS ORDERED: MIDAZOLAM HCL 2 MG/2 ML VIAL ONE (19:24)
[2018-11-10 19:51] VITALS: BP 109/51
[2018-11-10] MEDS ORDERED: SODIUM CHLORIDE 0.9% 250ML 250 ML ONE (23:16)
[2018-11-11] VITALS (8 sets, daily range): BP systolic 108–145; BP diastolic 55–70
[2018-11-11] MEDS: ACETAMINOPHEN/CODEINE 300MG - 30MG TAB PO PRN ×4 (04:31→20:50)
[2018-11-11] MEDS: PIPER-TAZ 3.375 GM 50 ML IV SCH ×3 (05:24→22:00)
[2018-11-11 05:39] LABS: BASOPHILS # (AUTO) 0.1 (0.0-0.1); BASOPHILS % 0.4 % (0.0-1.0); EOSINOPHILS % 0.3 % (0.0-6.0); HEMATOCRIT 40.6 % (38.2-49.6); HEMOGLOBIN 13.9 g/dL (14.0-18.0); LYMPHOCYTES # (AUTO) 1.7 (1.0-3.2); LYMPHOCYTES % 14.3 % (18.0-39.1); MEAN CORPUSCULAR HEMOGLOBIN 31.7 pg (28-32); MEAN CORPUSCULAR HGB CONC 34.2 g/dL (31-35); MEAN CORPUSCULAR VOLUME 92.5 fL (81-99); MONOCYTES # (AUTO) 1.3 (0.2-0.8); MONOCYTES % 10.7 % (4.4-11.3); NEUTROPHILS # (AUTO) 8.7 (2.1-6.9); NEUTROPHILS % 73.9 % (38.7-80.0); PLATELET COUNT 362 x10e3/uL (140-360); RED BLOOD COUNT 4.39 x10e6/uL (4.3-5.7); RED CELL DISTRIBUTION WIDTH 14.6 % (11.7-14.4)
[2018-11-11 06:00] LABS: ANION GAP 11.1 mmol/L (8-16); BLOOD UREA NITROGEN 11 mg/dL (7-26); BUN/CREATININE RATIO 13 (6-25); CALCIUM 9.3 mg/dL (8.4-10.2); CARBON DIOXIDE 30 mmol/L (22-29); CHLORIDE 104 mmol/L (98-107); CREATININE, SERUM 0.84 mg/dL (0.72-1.25); EST GLOMERULAR FILTRATION RATE > 60 ML/MIN (60-); GLUCOSE 106 mg/dL (74-118); POTASSIUM 5.1 mmol/L (3.5-5.1); SODIUM 140 mmol/L (136-145)
[2018-11-11] MEDS: METOPROLOL TARTRATE INJ 1 MG/ML VIAL IV SCH ×3 (06:00→18:06)
--- NOTE | 2018-11-11 11:34 | NUR ---
Spoke with Dr. Bull regarding dc plan. Pt is POD 1 for ex lap, hernia repair. Anticipate discharge in a few days.
--- NOTE | 2018-11-11 12:09 | NUR ---
CASE MANAGEMENT ASSESSMENT Health Advocate to bedside to discuss plan of care with patient/family. CM/SW role and care transitions discussed. Anticipated discharge plan discussed along with duration of care. CM/SW discussed patients right to make decisions in care. CM/SW work hours given. Patient lives: with Karen Admit/Transfer: thru ED Hospital/ER visits since last admit: last hospitalization in 2016; no ED visits since then POA/Emergency contact: Karen Ha [phone] Current/Previous Home Health: none PCP/Follow-up Care: Dr. Ramey at [facility]; advised pt to follow up with MD within 7 days of discharge for follow up care Current/Previous DME: none Medications (referring to index hospitalization or the first time you were in the hospital) a. Were changes made in your medications when you were in the hospital on [date of index hospitalization]? n/a b. Did you understand the changes? n/a c. Were you able to obtain your new medications right away? n/a d. Were you able to take your medications like the doctor wanted you to? n/a e. Did the hospital give you an accurate, easy to understand list of medications when you left? n/a Scale of 1-10 how comfortable does patient feel with disease management in outpatient settin Other Services: none Employment Status: employed at [employer] Areas of Concerns: SBO Referral Needs: none Education Needs: medical management IMM/DURAN given and signed (if applicable): n/a Goal for discharge: home CM/SW left business card at the bedside with contact information. Name and number was also written on the patients whiteboard. Patient verbalized understanding of discussion. CM will follow-up with ongoing discharge and transition of care needs.
[2018-11-11] MEDS ORDERED: HYDROCODONE/APAP 7.5MG-325MG 1 EA TAB PO PRN (16:15)
[2018-11-12] VITALS (7 sets, daily range): BP systolic 130–143; BP diastolic 60–76
[2018-11-12] MEDS: ACETAMINOPHEN/CODEINE 300MG - 30MG TAB PO PRN ×5 (02:14→17:55)
[2018-11-12] MEDS: METOPROLOL TARTRATE INJ 1 MG/ML VIAL IV SCH ×2 (06:22)
--- NOTE | 2018-11-12 08:00 | NUR ---
patient ambulating in [place] with sister walking beside. no c/o pain at this time. able to make needs known.
[2018-11-12] MEDS ORDERED: TYLENOL WITH C1 EACH PO (16:10)
[2018-11-12] MEDS ORDERED: METOPROLOL SUCCINATE 50 MG TAB XL PO SCH (17:00)
--- NOTE | 2018-11-12 18:15 | NUR ---
PIV removed with tip intact. escorted to front lobby entrance via WC where sister awaited in private auto. all personal belongings, RX and d/c instructions in hand at time of d/c. safely transferred into vehicle.
[2018-11-13] MEDS ORDERED: LOSARTAN POTASSIUM 25 MG TAB PO SCH (09:00)
--- NOTE | 2018-11-14 14:32 | Discharge Summary ---
PRIMARY CARE PHYSICIAN: Dr. Antonio Ramey [facility]. FINAL DIAGNOSIS: Small bowel obstruction secondary to adhesive band. SECONDARY DIAGNOSES: 1. Previous appendectomy. 2. Previous gastric bypass surgery. 3. Chronic compensated systolic congestive heart failure. 4. Automatic implantable cardioverter-defibrillator status. 5. Hypertension. CONSULTANTS: 1. Dr. Srivastava, General Surgery. 2. Dr. Rdz, Cardiology. PROCEDURES/STUDIES PERFORMED: 1. Diagnostic laparoscopy and open lysis of adhesion band. 2. Echocardiogram shows an EF of 30% to 35%. HISTORY: Per [facility]. HOSPITAL COURSE: The patient was admitted. Preop evaluation was done by Dr. Rdz. The patient underwent unremarkable lysis of adhesion. Afterwards, he received antibiotic, Zosyn for 24 hours. On postop day #3, the patient was tolerating full liquid diet and was passing gas. Pain is controlled with Tylenol No. 3. I have discussed this case with Dr. Srivastava. We both feel that the patient is stable for discharge. Tylenol No. 3 prescription was given. The patient will follow up with Dr. Srivastava in a week. I have also updated Dr. Ramey, his primary care doctor, about this hospitalization. The patient was seen and examined today. It took 32 minutes total to discharge this patient. CONDITION ON DISCHARGE: Improved. DISCHARGE MEDICATIONS: Please see medication reconciliation form. MD JONATHAN Moeller/EMMA /[id number] cc: [facility]
== END 2018-11-12 18:19 | disposition home or self-care (01) | DRG 336 ==
LOC: ER 21:22 → ERHOLD 11-10 01:29 → MED/SURG2 11-10 04:09
PROVIDERS: ADMIT Internal Medicine; ATTEND Internal Medicine
PROC: 0DJD4ZZ Inspection of Lower Intestinal Tract, Percutaneous Endoscopic Approach (ICD-10-PCS; 2018-11-10)
PROC: 0DN80ZZ Release Small Intestine, Open Approach (ICD-10-PCS; principal; 2018-11-10 10:29)
DX: K56.50 Intestinal adhesions [bands], unspecified as to partial versus complete obstruction (principal); I50.22 Chronic systolic (congestive) heart failure; K95.09 Other complications of gastric band procedure; Z98.84 Bariatric surgery status; I11.0 Hypertensive heart disease with heart failure; Z53.31 Laparoscopic surgical procedure converted to open procedure; Z88.8 Allergy status to other drugs, medicaments and biological substances; Z91.048 Other nonmedicinal substance allergy status; Z95.1 Presence of aortocoronary bypass graft; Z82.49 Family history of ischemic heart disease and other diseases of the circulatory system; Z95.810 Presence of automatic (implantable) cardiac defibrillator
CPT/HCPCS: 36415; 71045; 74176; 80048; 80053; 81001; 82150; 82550; 82553; 83690; 83880; 84484; 85025; 85610; 85730; 86850; 86900; 93005; 93306; 99284; J0461; J1100; J1885; J2001; J2250; J2270; J2405; J2543; J7030; J7050

== ENCOUNTER 2022-01-19 00:49 | Observation (INO) | payer BC ==
[~2022-01-19] VITALS: Ht 180.3 cm; Wt 109.3 kg
[~2022-01-19 00:49] MED LIST: LOSARTAN POTASS25 MG PO; METOPROLOL SUCC50 MG PO; TYLENOL WITH C1 EACH PO
[2022-01-19] MEDS ORDERED: ONDANSETRON HCL INJ 2MG/ML 2ML 2 MG/ML VIAL IV STA (00:59)
[2022-01-19] MEDS ORDERED: Morphine 2mg Syringe 2 MG/ML SYR IV ONE (01:00)
[2022-01-19] MEDS ORDERED: ASPIRIN 81 MG CHEW TAB PO ONE (01:00)
[2022-01-19 01:28] LABS: BASOPHILS # (AUTO) 0.1 (0.0-0.1); EOSINOPHILS # (AUTO) 0.3 (0.0-0.4); EOSINOPHILS % 2.6 % (0.0-6.0); HEMATOCRIT 54.8 % (38.2-49.6); HEMOGLOBIN 17.3 g/dL (14.0-18.0); LYMPHOCYTES # (AUTO) 2.6 (1.0-3.2); LYMPHOCYTES % 26.5 % (18.0-39.1); MEAN CORPUSCULAR HEMOGLOBIN 26.3 pg (28-32); MEAN CORPUSCULAR HGB CONC 31.6 g/dL (31-35); MEAN CORPUSCULAR VOLUME 83.2 fL (81-99); MONOCYTES % 9.9 % (4.4-11.3); NEUTROPHILS # (AUTO) 5.9 (2.1-6.9); NEUTROPHILS % 59.5 % (38.7-80.0); PLATELET COUNT 376 x10e3/uL (140-360); RED BLOOD COUNT 6.59 x10e6/uL (4.3-5.7); RED CELL DISTRIBUTION WIDTH 19.6 % (11.7-14.4)
[2022-01-19 01:37] LABS: INR 0.91; PROTHROMBIN TIME 13.1 seconds (11.9-14.5)
[2022-01-19] MEDS ORDERED: ASPIRIN 81 MG ENTERIC COATED PO ONE (01:43)
[2022-01-19 01:47] LABS: ALANINE AMINOTRANSFERASE 14 IU/L (0-55); ALBUMIN 3.7 g/dL (3.5-5.0); ALBUMIN/GLOBULIN RATIO 0.9 (0.8-2.0); ALKALINE PHOSPHATASE 87 IU/L (40-150); ANION GAP 14.2 mmol/L (8-16); BLOOD UREA NITROGEN 18 mg/dL (7-26); BUN/CREATININE RATIO 19 (6-25); CALCIUM 8.5 mg/dL (8.4-10.2); CARBON DIOXIDE 24 mmol/L (22-29); CHLORIDE 106 mmol/L (98-107); CREATINE KINASE 55 IU/L (30-200); CREATININE, SERUM 0.93 mg/dL (0.72-1.25); EST GLOMERULAR FILTRATION RATE 82 ML/MIN (60-); GLUCOSE 105 mg/dL (74-118); POTASSIUM 4.2 mmol/L (3.5-5.1); SODIUM 140 mmol/L (136-145)
[2022-01-19] MEDS ORDERED: ONDANSETRON HCL INJ 2MG/ML 2ML 2 MG/ML VIAL IV PRN (03:45)
[2022-01-19] MEDS ORDERED: SODIUM CHLORIDE FLUSH 10 ML SYR INJ PRN (03:45)
[2022-01-19] MEDS ORDERED: Morphine 2mg Syringe 2 MG/ML SYR IV PRN (04:00)
[2022-01-19 05:06] VITALS: BP 145/77
[2022-01-19 05:17] VITALS: BP 145/77
[2022-01-19] MEDS ORDERED: ENTRESTO 24 MG1 EACH (07:32)
[2022-01-19 08:00] VITALS: BP 127/64
[2022-01-19 08:16] VITALS: BP 127/64
[2022-01-19] MEDS ORDERED: ASPIRIN 81 MG ENTERIC COATED PO SCH (09:00)
[2022-01-19 09:42] LABS: CREATINE KINASE 41 IU/L (30-200)
[2022-01-19] MEDS ORDERED: NITROGLYCERIN 0.4 MG SUBL SL PRN (09:45)
[2022-01-19] MEDS ORDERED: PANTOPRAZOLE SOD 40 MG TABEC PO SCH (10:00)
[2022-01-19] MEDS ORDERED: ENOXAPARIN SODIUM INJ 100 MG/ML SYR SC SCH (10:00)
[2022-01-19] MEDS: SACUBITRIL/VALSARTAN 1 EACH TABLET PO SCH (10:00)
[2022-01-19 11:32] LABS: CHOL/HDL RATIO 2.7 (3.9-4.7)
[2022-01-19 12:12] VITALS: BP 138/79
[2022-01-19 16:34] VITALS: BP 113/72
[2022-01-19 16:44] LABS: CREATINE KINASE 38 IU/L (30-200)
[2022-01-19] MEDS ORDERED: METOPROLOL SUCCINATE 50 MG TAB XL PO SCH (17:00)
[2022-01-19] MEDS ORDERED: PANTOPRAZOLE SO40 MG PO (19:02)
[2022-01-19] MEDS ORDERED: LIPITOR20 MG PO (19:02)
[2022-01-19] MEDS ORDERED: ASPIRIN EC81 MG PO (19:02)
[2022-01-19] MEDS ORDERED: ATORVASTATIN 20 MG TAB PO SCH (21:00)
== END 2022-01-19 19:50 | disposition home or self-care (01) ==
LOC: ER 00:53 → ERHOLD 03:42 → MED/SURG3 05:00
PROVIDERS: ADMIT Internal Medicine; ATTEND Internal Medicine
DX: R07.89 Other chest pain (principal); I11.0 Hypertensive heart disease with heart failure; I50.22 Chronic systolic (congestive) heart failure; R10.13 Epigastric pain; E78.5 Hyperlipidemia, unspecified; E66.9 Obesity, unspecified; Z68.33 Body mass index [BMI] 33.0-33.9, adult; Z98.84 Bariatric surgery status; Z95.810 Presence of automatic (implantable) cardiac defibrillator; Z90.49 Acquired absence of other specified parts of digestive tract; Z87.891 Personal history of nicotine dependence; Z88.8 Allergy status to other drugs, medicaments and biological substances; Z20.822 Contact with and (suspected) exposure to COVID-19
CPT/HCPCS: 36415; 71045; 80053; 80061; 82550; 82553; 83036; 83880; 84484; 85025; 85610; 85730; 93005; 93306; 99284; G0378; J1650; J2270; J2405; S0164; U0002